=== PATIENT | female | born 1940 | race African-American/Black ===

== ENCOUNTER 2020-01-03 18:55 | Inpatient (IN) | payer OTHER ==
[~2020-01-03] VITALS: Ht 165.1 cm; Wt 75.8 kg
[2020-01-03 18:56] VITALS: BP 120/64
[2020-01-03 20:53] LABS: HEMATOCRIT 41.8 % (37.0-47.0); HEMOGLOBIN 13.7 gm/dL (12.0-15.0); MCH 27.3 pg (26.0-34.0); MCHC 32.9 g/dL (28.0-37.0); MCV 83.1 fL (80.0-100.0); RBC 5.02 mil/uL (4.20-5.00); RDW 16.5 % (10.5-14.5); WBC 3.3 thou/uL (4.0-11.0)
[2020-01-03 21:04] LABS: ANION GAP 4 mmol/L (7-16); BUN 20 mg/dL (7-18); CALCIUM 7.8 mg/dL (8.5-10.1); CHLORIDE 102 mmol/L (98-107); CO2 29 mmol/L (21-32); CREATININE 1.5 mg/dL (0.6-1.0); GLUCOSE 129 mg/dL (74-106); POTASSIUM 3.7 mmol/L (3.5-5.1); SODIUM 135 mmol/L (136-145)
[2020-01-03 21:14] LABS: ALBUMIN 3.4 g/dL (3.4-5.0); SGOT 22 U/L (15-37); SGPT 18 U/L (30-65); TOTAL BILIRUBIN 0.3 mg/dL (0.2-1.0); TOTAL PROTEIN 7.2 g/dL (6.4-8.2); TROPONIN-I <0.06 ng/mL (<0.06)
[2020-01-03 22:49] LABS: URINE BILIRUBIN NEGATIVE (Negative); URINE BLOOD 1+ (Negative); URINE CLARITY CLEAR; URINE COLOR YELLOW; URINE GLUCOSE-RANDOM* NEGATIVE (Negative); URINE KETONES NEGATIVE (Negative); URINE LEUKOCYTES-REFLEX NEGATIVE (Negative); URINE NITRITE-REFLEX NEGATIVE (Negative); URINE PROTEIN (DIPSTICK) NEGATIVE (Negative); URINE UROBILINOGEN 0.2 E.U./dl (0.2-1.0)
[2020-01-03 23:13] LABS: BACTERIA-REFLEX 1-9 Few /HPF (None Seen); CRYSTALS None Seen /LPF (None Seen); HYALINE CASTS 0-3 Few /LPF (None Seen); MUCUS 4-6 Moderate strn/LPF (None Seen); SQUAMOUS 4-10 Moderate /LPF (0-3); URINE RBC 3-10 Few /HPF (0-2); URINE WBC-REFLEX 0-5 Rare /HPF (0-5)
[2020-01-04] VITALS (8 sets, daily range): BP systolic 116–172; BP diastolic 58–88
[2020-01-04] MEDS ORDERED: ELIQUIS5 MG PO (01:11)
[2020-01-04] MEDS ORDERED: LOVASTATIN 20 M20 MG PO (01:11)
[2020-01-04] MEDS ORDERED: SYNTHROID88 MC1 PO (01:12)
[2020-01-04] MEDS ORDERED: VITAMIN D3 PO (01:12)
[2020-01-04 04:49] LABS: HEMATOCRIT 41.7 % (37.0-47.0); HEMOGLOBIN 13.5 gm/dL (12.0-15.0); MCH 27.1 pg (26.0-34.0); MCHC 32.3 g/dL (28.0-37.0); RBC 4.96 mil/uL (4.20-5.00); RDW 16.6 % (10.5-14.5); WBC 3.1 thou/uL (4.0-11.0)
[2020-01-04 04:51] LABS: CALCIUM 7.7 mg/dL (8.5-10.1); CREATININE 1.3 mg/dL (0.6-1.0); POTASSIUM 3.3 mmol/L (3.5-5.1)
[2020-01-04 07:18] LABS: CHOLESTEROL 115 mg/dL (<200); HDL CHOLESTEROL 29 mg/dL (>40); LDL CHOLESTEROL 67 mg/dL (<100); TRIGLYCERIDE 96 mg/dL (<150); VLDL 19 mg/dL (<40)
[2020-01-05] VITALS (9 sets, daily range): BP systolic 114–152; BP diastolic 60–87
[2020-01-06] VITALS (7 sets, daily range): BP systolic 116–171; BP diastolic 56–75
[2020-01-06 06:37] LABS: ABSOLUTE NEUTROPHILS 2.9 thou/uL (1.4-8.2); BASOPHILS 0.9 % (0.0-2.0); EOSINOPHILS 0.2 % (0.0-3.0); HEMATOCRIT 38.6 % (37.0-47.0); HEMOGLOBIN 12.7 gm/dL (12.0-15.0); LYMPHOCYTES 17.1 % (24.0-44.0); MCH 27.3 pg (26.0-34.0); MCHC 32.9 g/dL (28.0-37.0); MCV 82.9 fL (80.0-100.0); MONOCYTES 11.2 % (1.0-8.0); PLATELET COUNT 175 thou/uL (150-400); POLYS 70.6 % (36.0-66.0); RBC 4.66 mil/uL (4.20-5.00); RDW 16.3 % (10.5-14.5); WBC 4.1 thou/uL (4.0-11.0)
[2020-01-07 04:15] VITALS: BP 136/53
[2020-01-07 07:30] VITALS: BP 126/68
[2020-01-07 08:02] LABS: HEMATOCRIT 36.5 % (37.0-47.0); HEMOGLOBIN 12.2 gm/dL (12.0-15.0); MCH 27.2 pg (26.0-34.0); MCHC 33.5 g/dL (28.0-37.0); MCV 81.3 fL (80.0-100.0); PLATELET COUNT 170 thou/uL (150-400); RBC 4.48 mil/uL (4.20-5.00); RDW 16.4 % (10.5-14.5); WBC 3.5 thou/uL (4.0-11.0)
[2020-01-07 08:23] LABS: ALBUMIN 2.9 g/dL (3.4-5.0); CALCIUM 7.5 mg/dL (8.5-10.1); CREATININE 0.9 mg/dL (0.6-1.0); MAGNESIUM 1.6 mg/dL (1.8-2.4); TOTAL BILIRUBIN 0.3 mg/dL (0.2-1.0); TOTAL PROTEIN 6.4 g/dL (6.4-8.2)
[2020-01-07 08:55] LABS: ABSOLUTE NEUTROPHILS 2.2 thou/uL (1.4-8.2); PLATELET ESTIMATE NORMAL
[2020-01-07 11:14] VITALS: BP 143/79
[2020-01-07 16:06] VITALS: BP 150/73
[2020-01-07 20:28] VITALS: BP 136/71
[2020-01-08 02:07] LABS: GLYCOHEMOGLOBIN (HGB A1C) 7.2 % (4.8-5.6)
[2020-01-08 04:21] LABS: CALCIUM 7.7 mg/dL (8.5-10.1); CREATININE 0.9 mg/dL (0.6-1.0); MAGNESIUM 1.6 mg/dL (1.8-2.4)
[2020-01-08 04:24] VITALS: BP 115/62
[2020-01-08 04:41] LABS: POTASSIUM 4.1 mmol/L (3.5-5.1)
--- NOTE | 2020-01-08 07:23 | EKG ---
[facility] [address] [place] [address] ELECTROCARDIOGRAM REPORT Name: GUS ELIZABETH Room #: 354- ADM IN M.R.#: [id number] Admission: 01/04/20 Attend Phys: Pankaj Villatoro MD Discharge: Date of : 38 Report #: [id number] THIS REPORT FOR: cc: Matthew Villagran MD, Shyam MD Lundgren,Jonny Hughes MD [facility] THIS REPORT FOR: //name// [facility] Test Date: 2020-01-04 Test Time: 09:06:30 Pat Name: GUS ELIZABETH Department: Room: 354 P Gender: F Contracts Analyst: JUANPABLO : 1940 Requested By: Pankaj Villatoro Order Number: [id number] MD: Jonny Maldonado Measurements Intervals Nelson Rate: 57 P: 62 AK: 155 QRS: -31 QRSD: 92 T: -5 QT: 424 QTc: 413 Interpretive Statements Sinus rhythm Leftward axis No previous ECG available for comparison Electronically Signed On 01-08-2020 7:23:36 CDT by Jonny Maldonado [email or web address] <ELECTRONICALLY SIGNED> By: Jonny Maldonado MD, FACC 01/08/20 0723 5 5 Jonny Maldonado MD, [facility] /EPI
[2020-01-08 08:14] VITALS: BP 149/57
[2020-01-08 15:32] VITALS: BP 145/68
[2020-01-08 19:22] VITALS: BP 144/75
[2020-01-08 19:50] VITALS: BP 145/73
[2020-01-08 23:04] VITALS: BP 122/51
[2020-01-09 03:50] VITALS: BP 156/73
[2020-01-09 09:00] VITALS: BP 168/64
[2020-01-09 16:00] VITALS: BP 178/77
[2020-01-09 19:21] VITALS: BP 121/50
[2020-01-10 04:10] VITALS: BP 134/71
[2020-01-10 07:52] VITALS: BP 153/66
[2020-01-10 16:49] VITALS: BP 167/96
[2020-01-10 20:02] VITALS: BP 115/59
[2020-01-11 04:55] VITALS: BP 141/73
[2020-01-11 08:10] VITALS: BP 146/73
[2020-01-11] MEDS ORDERED: LEVAQUIN 500 M500 M2 PO (12:53)
[2020-01-11 15:32] VITALS: BP 139/75
== END 2020-01-11 16:52 | DRG 177 ==
LOC: ER 18:55 → 3W 01-04 00:51 → EROBS 01-04 00:51 → 3W 01-04 02:12
PROVIDERS: Nurse Practitioner Family; Student in an Organized Health Care Education/Training Program; ADMIT Internal Medicine; ATTEND Internal Medicine
DX: U07.1 COVID-19 (principal); J12.89 Other viral pneumonia; E03.9 Hypothyroidism, unspecified; E78.5 Hyperlipidemia, unspecified; E11.9 Type 2 diabetes mellitus without complications; F03.90 Unspecified dementia, unspecified severity, without behavioral disturbance, psychotic disturbance, mood disturbance, and anxiety; I95.1 Orthostatic hypotension; I10 Essential (primary) hypertension; Z98.49 Cataract extraction status, unspecified eye; Z86.711 Personal history of pulmonary embolism; Z79.01 Long term (current) use of anticoagulants; Z79.899 Other long term (current) drug therapy
CPT/HCPCS: 10879

== ENCOUNTER 2020-01-31 18:46 | Inpatient (IN) | payer OTHER ==
[~2020-01-31] VITALS: Ht 154.9 cm; Wt 70.8 kg
--- NOTE | ~2020-01-31 | O ---
[facility] [place] [address] [place] [address] OPERATIVE REPORT Name: GUS ELIZABETH Room #: 362-P ADM IN M.R.#: [id number] Admission: 01/31/20 Attend Phys: Marilynn Krueger MD Discharge: Date of : 38 Report #: [id number] THIS REPORT FOR: cc: Matthew Villagran MD, Shyam MD Patterson,Leonardo Lawrence MD ~ CC: Matthew Krueger DATE OF SERVICE: 02/21/2020 PREOPERATIVE DIAGNOSIS: Protein-calorie malnutrition. POSTOPERATIVE DIAGNOSIS: Protein-calorie malnutrition. OPERATION: Laparoscopic gastrostomy tube, 16-Cambodian. SURGEON: Leonardo Ramesh MD ANESTHESIA: General. ESTIMATED BLOOD LOSS: Minimal. SPECIMEN: None. DESCRIPTION OF PROCEDURE: After informed consent was obtained, the patient was brought to the operating room and placed supine. SCDs were placed and working, preoperative antibiotics were administered, general anesthesia was induced. The abdomen was prepped and draped in the usual sterile fashion. A 5 mm incision was made in the left upper quadrant. A 5 mm trocar was placed under direct vision. Pneumoperitoneum was established. T-bars were placed in the distal stomach. There were two of these T-bars placed using the laparoscopic gastrostomy introducer kit. The stomach was then brought up to the abdominal wall. The stomach was then cannulated between the T-bars with a Seldinger needle. Wire was placed. Dilator with a 22-Cambodian sheath was placed. A 16-Cambodian gastrostomy tube was then placed into the sheath and the sheath was peeled away. The balloon on the gastrostomy tube was inflated. The T-bars were fastened down. I insufflated the stomach to make sure that the tube was intraluminal. It was indeed in the lumen. The ports were removed under direct vision. The skin was closed with 4-0 Monocryl. Incisions were sealed with Dermabond. COMPLICATIONS: None. [facility] [address] [place] [address] OPERATIVE REPORT Name: GUS ELIZABETH Room #: 362-P [facility] IN ..#: [id number] Admission: 01/31/20 Attend Phys: Marilynn Krueger MD Discharge: Date of : 38 Report #: [id number] DISPOSITION: The patient was taken to recovery in satisfactory condition. By: 36 53 Leonardo Ramesh MD /nt
[~2020-01-31 18:46] MED LIST: ELIQUIS5 MG PO; LEVAQUIN 500 M500 M2 PO; LOVASTATIN 20 M20 MG PO; SYNTHROID88 MC1 PO; VITAMIN D3 PO
[2020-01-31 18:49] VITALS: BP 100/58
--- NOTE | 2020-01-31 19:10 | NUR ---
PER AM DIGESTER COOK RN FROM [facility]. REPORTED: PT FELL, LOW BP, WEAKNESS AND + KALAID VASU MARTE RN: [phone]
[2020-01-31 19:15] LABS: HEMATOCRIT 41.6 % (37.0-47.0); HEMOGLOBIN 13.7 gm/dL (12.0-15.0); MCH 26.8 pg (26.0-34.0); MCHC 32.9 g/dL (28.0-37.0); MCV 81.4 fL (80.0-100.0); PLATELET COUNT 326 thou/uL (150-400); RBC 5.11 mil/uL (4.20-5.00); RDW 16.1 % (10.5-14.5); WBC 17.3 thou/uL (4.0-11.0)
[2020-01-31 19:34] LABS: ALBUMIN 2.6 g/dL (3.4-5.0); ANION GAP 19 mmol/L (7-16); BUN 36 mg/dL (7-18); CALCIUM 8.3 mg/dL (8.5-10.1); CHLORIDE 102 mmol/L (98-107); CO2 20 mmol/L (21-32); DIRECT BILIRUBIN 0.2 mg/dL (<0.1-0.2); GLUCOSE 171 mg/dL (74-106); SGOT 15 U/L (15-37); SGPT 13 U/L (30-65); SODIUM 141 mmol/L (136-145); TOTAL BILIRUBIN 0.6 mg/dL (0.2-1.0); TOTAL PROTEIN 6.7 g/dL (6.4-8.2); TROPONIN-I <0.06 ng/mL (<0.06)
[2020-01-31 19:36] LABS: POTASSIUM 2.6 mmol/L (3.5-5.1)
[2020-01-31 19:51] LABS: ABSOLUTE NEUTROPHILS 16.1 thou/uL (1.4-8.2); ANISOCYTOSIS 1+; METAMYELOCYTES 1 %
[2020-01-31 20:09] LABS: ICTOTEST (BILI CONFIRMATORY) Negative (Negative); URINE BILIRUBIN NEGATIVE (Negative); URINE BLOOD NEGATIVE (Negative); URINE CLARITY CLEAR; URINE COLOR YELLOW; URINE GLUCOSE-RANDOM* NEGATIVE (Negative); URINE KETONES 2+ (Negative); URINE LEUKOCYTES-REFLEX NEGATIVE (Negative); URINE NITRITE-REFLEX NEGATIVE (Negative); URINE PROTEIN (DIPSTICK) 1+ (Negative); URINE UROBILINOGEN 0.2 E.U./dl (0.2-1.0)
[2020-01-31 20:32] LABS: BACTERIA-REFLEX 1-9 Few /HPF (None Seen); CASTS None Seen /LPF (None Seen); CRYSTALS None Seen /LPF (None Seen); SQUAMOUS 0-3 Few /LPF (0-3); URINE RBC None Seen /HPF (0-2); URINE WBC-REFLEX None Seen /HPF (0-5)
[2020-01-31 22:52] VITALS: BP 108/59
[2020-01-31 23:14] VITALS: BP 108/61
[2020-02-01 00:07] VITALS: BP 104/46
[2020-02-01 04:10] VITALS: BP 127/61
[2020-02-01 06:21] LABS: HEMATOCRIT 40.6 % (37.0-47.0); HEMOGLOBIN 13.3 gm/dL (12.0-15.0); MCH 26.6 pg (26.0-34.0); MCHC 32.6 g/dL (28.0-37.0); MCV 81.5 fL (80.0-100.0); RBC 4.99 mil/uL (4.20-5.00); RDW 16.3 % (10.5-14.5); WBC 18.3 thou/uL (4.0-11.0)
[2020-02-01 06:49] LABS: CALCIUM 7.8 mg/dL (8.5-10.1); CREATININE 1.7 mg/dL (0.6-1.0); POTASSIUM 3.2 mmol/L (3.5-5.1)
--- NOTE | 2020-02-01 07:47 | NUR ---
PT TO UNIT AROUND 0030. PT IS ORIETNED TO SELF BUT CONFUSED. TALKS NONSENSE. PT IS CONTINENT, X1 ASSIST TO BSC. 3 SMALL LOOSE STOOLS OVERNIGHT. PT HR 90-110S TONIGHT. NO APPARENT PAIN. POTASSIUM HAD TO BE RAN SLOW, THEREFORE IT IS STILL RUNNING. PER FACILITY, PT TAKES MEDS CRUSHED WITH APPLESAUCE, PT VERY APPREHENSIVE ABOUT EATING APPLESAUCE WITH MORNING MEDS. FLUIDS INFUSING PER ORDER. ADMISISON ASSESSMENT COMPLETED, TRIED TO PHONE FAMILY FOR HELP BUT NO ANSWER- INFO PASSED TO AM RN. PT SLEPT W/O COMPLAINTS.
[2020-02-01 08:13] VITALS: BP 113/50
--- NOTE | 2020-02-01 09:21 | NUR ---
ASSUMED CARE OF PT AT SHIFT CHANGE, ANSWERS TO HER BDATE ONLY, SHAKES HER HEAD NO TO CARES AND MEDS THIS A.M. GOT ELEQUIS DOWN, SBA TO BSC, ISNT SPEAKING/GRUNTS, MAY BE NORM? WILL SPEAK W/FAMILY LATER WHEN ABLE. NIGHT NURSE REPORTS ADMISSION HISTORY NOT DONE D/T PTS COGNITION/LACK OF SPEECH. 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 WILL CONTINUE TO MONITOR. ENCOURAGED HER TO USE CALL LIGHT FOR ANY NEEDS
[2020-02-01 11:49] VITALS: BP 115/50
--- NOTE | 2020-02-01 13:29 | NUR ---
ADMISSION HISTORY: PT ADMIITED PRIOR SHIFT; REPORTS OF UNABLE TO ANSWER QUESTIONS, COULD NOT REACH FAMILY TO FINISH UP HER ADMISSION HISTORY
--- NOTE | 2020-02-01 15:25 | NUR ---
INITIAL ASSESSMENT: HARLEEN reviewed chart and spoke with nursing. Pt was admitted from [facility] due to syncopal episode/fall at the facility. Pt placed in Enhanced Isolation to r/o COVID-19. Pt's test is positive. Pt was recenlty at [facility] and was positive at that time. HARLEEN spoke with pt's great niece, Rosanna via phone to provide update. Introduced role of SW. Pt's great niece states that prior to admission, pt was able to do her ADLs. Pt was able to feed herself and eat. Pt was walking at the facility. Sometimes using a walker. Pt has lived in the memory care unit at [facility] since September of this year. Pt's dtr, Jeni, lives out of state, but is involved in pt's care. Confirmed plan is for pt to return to [facility] when medically stable. SW faxed clinical info, vital signs, COVID test results to [facility] for review. HARLEEN provided update to [facility] post-acute liaison. HARLEEN is following to assist as needed with discharge planning.
[2020-02-01 15:46] VITALS: BP 143/78
[2020-02-01 20:20] VITALS: BP 114/61
--- NOTE | 2020-02-02 03:49 | NUR ---
ASSUMED PT CARE AT 1900. PT IS ORIENTED TO SELF ONLY. IMPULSIVE WHEN SHE WANTS TO USE THE COMMODE. PT IS VERY DIFFICULT TO GET TO TAKE MEDS. SHE WAS WILLING TO TRY WITH ICE CREAM AND ENDED UP SPITTING THEM OUT. FLUIDS AND ANTIBIOTICS INFUSING PER ORDER. PT SEEMED UNCOMFORTABLE AND HAD A SMALL TEMP, TYLENOL WAS GIVEN AND PT FELL ASLEEP. BS WNL. RUNNING SINUS ON MONITOR. WILL CONTINUE TO MONITOR.
[2020-02-02 04:13] VITALS: BP 102/53
[2020-02-02 06:23] LABS: HEMATOCRIT 38.3 % (37.0-47.0); HEMOGLOBIN 12.5 gm/dL (12.0-15.0); MCH 26.8 pg (26.0-34.0); MCHC 32.6 g/dL (28.0-37.0); MCV 82.2 fL (80.0-100.0); RBC 4.66 mil/uL (4.20-5.00); RDW 16.2 % (10.5-14.5); WBC 20.2 thou/uL (4.0-11.0)
[2020-02-02 06:51] LABS: CALCIUM 7.3 mg/dL (8.5-10.1); CREATININE 1.8 mg/dL (0.6-1.0); POTASSIUM 3.3 mmol/L (3.5-5.1)
[2020-02-02 08:30] VITALS: BP 97/54
--- NOTE | 2020-02-02 09:01 | EKG ---
[facility] [address] [place] [address] ELECTROCARDIOGRAM REPORT Name: GUS ELIZABETH Room #: 362-P ADM IN M.R.#: [id number] Admission: 01/31/20 Attend Phys: Marilynn Krueger MD Discharge: Date of : 38 Report #: [id number] THIS REPORT FOR: cc: Matthew Villagran MD, Shyam MD Lundgren,Jonny Hughes MD [facility] ~ THIS REPORT FOR: //name// [facility] ED Test Date: 2020-01-31 Test Time: 19:08:50 Pat Name: GUS ELIZABETH Department: Room: 362 Gender: F [employer] Farmworker: JEAN MARIE : 1940 Requested By: Julius Davies Order Number: [id number] MD: Jonny Maldonado Measurements Intervals [place] Rate: 94 P: 0 SD: 158 QRS: -27 QRSD: 92 T: -27 QT: 361 QTc: 452 Interpretive Statements Incomplete tracing, recommend all leads Sinus tachycardia Multiple atrial premature complexes Nonspecific ST and T wave abnormality Compared to ECG 01/04/2020 09:06:30 Atrial premature complex(es) now present Nonspecific change in the ST and T wave segments Electronically Signed On 02-02-2020 9:01:49 CDT by Jonny Maldonado [email or web address] <ELECTRONICALLY SIGNED> By: Jonny Maldonado MD, [facility] 02/02/20900 07 07 Jonny Maldonado MD, [facility] /EPI
[2020-02-02 11:37] VITALS: BP 118/62
--- NOTE | 2020-02-02 15:00 | NUR ---
HARLEEN reviewed chart and spoke with nursing. Pt remains in Enhanced Isolation due to COVID-19. Pt had fever yesterday and is on IV abx. Awaiting culture results Not requiring any O2. HARLEEN provided update to [facility] post-acute liaison. No weekend discharge anticipated. HARLEEN spoke with pt's great niece, Rosanna, to provide update. SW to fax clinical updates to [facility] on Wednesday for review. Pt will need an updated COVID test within 48 hours of discharge per facility's request. HARLEEN is following to assist as needed with discharge planning.
[2020-02-02 15:32] LABS: URINE BILIRUBIN 1+ (Negative); URINE BLOOD NEGATIVE (Negative); URINE CLARITY SL CLOUDY; URINE COLOR YELLOW; URINE GLUCOSE-RANDOM* NEGATIVE (Negative); URINE KETONES TRACE (Negative); URINE LEUKOCYTES-REFLEX NEGATIVE (Negative); URINE NITRITE-REFLEX NEGATIVE (Negative); URINE PROTEIN (DIPSTICK) 2+ (Negative); URINE SPECIFIC GRAVITY >= 1.030 (1.005-1.035); URINE UROBILINOGEN 0.2 E.U./dl (0.2-1.0)
[2020-02-02 15:37] LABS: ICTOTEST (BILI CONFIRMATORY) Negative (Negative)
[2020-02-02 15:43] LABS: AMORPHOUS URATES Moderate /LPF (None Seen); SQUAMOUS 0-3 Few /LPF (0-3)
[2020-02-02 15:44] LABS: BACTERIA-REFLEX 1-9 Few /HPF (None Seen); CASTS None Seen /LPF (None Seen); URINE RBC None Seen /HPF (0-2); URINE WBC-REFLEX None Seen /HPF (0-5)
--- NOTE | 2020-02-02 18:14 | NUR ---
ASSUMMED PT CARE AT APPROXIMATELY 0700. PT AWAKE AND ORIENTED TO SELF. FREQUENT REORIENTATION PROVIDED. ASSESSEMENT CHARTED. FALL PRECAUTIONS IN PLACE. PT DENIES HAVING CHEST PAIN. PT DENIES HAVING SOB. PT DENIES HAVING ACUTE PAIN. INFORMED DR. ENG OF PT'S LOW URINE OUTPUT. PT STATED UNDERSTANDING AND NEW ORDERS ENTERED. INFORMED DR. ENG OF PT'S KUB RESULTS. DR. ENG STATED UNDERSTANDING AND NEW ORDERS ENTERED. PT COMFORTABLE. VITAL SIGNS STABLE. PT DENIES HAVING FURTHER CONCERNS.
[2020-02-02 20:00] VITALS: BP 115/78
[2020-02-03 02:13] LABS: HEMATOCRIT 35.1 % (37.0-47.0); HEMOGLOBIN 11.3 gm/dL (12.0-15.0); MCH 26.4 pg (26.0-34.0); MCHC 32.3 g/dL (28.0-37.0); MCV 81.9 fL (80.0-100.0); PLATELET COUNT 239 thou/uL (150-400); RBC 4.29 mil/uL (4.20-5.00); RDW 16.3 % (10.5-14.5); WBC 16.3 thou/uL (4.0-11.0)
[2020-02-03 02:27] LABS: CALCIUM 6.8 mg/dL (8.5-10.1); CREATININE 1.2 mg/dL (0.6-1.0); MAGNESIUM 1.5 mg/dL (1.8-2.4); PHOSPHORUS 1.3 mg/dL (2.5-4.9)
[2020-02-03 02:48] LABS: ABSOLUTE NEUTROPHILS 14.8 thou/uL (1.4-8.2)
[2020-02-03 02:49] LABS: ANISOCYTOSIS 1+
[2020-02-03 04:41] VITALS: BP 90/45
[2020-02-03 08:47] VITALS: BP 102/53
[2020-02-03 11:12] VITALS: BP 106/52
--- NOTE | 2020-02-03 14:09 | NUR ---
REPORT GIVEN TO ALEX AVILES.
[2020-02-03 15:49] VITALS: BP 126/57
[2020-02-03 18:11] LABS: HEMATOCRIT 35.5 % (37.0-47.0); HEMOGLOBIN 11.6 gm/dL (12.0-15.0)
--- NOTE | 2020-02-03 18:52 | NUR ---
ASSUMED CARE OF PATIENT AT 1400. PATIENT IS ON ISOLATION FOR COVID. PATIENT HAS DEMENTIA AND IS VERY IMPULSIVE AND TRIES TO GET OUT OF BED. BED ALARM SET. PATIENT NPO FOR ILEUS. CT ABD/PELVIS PERFORMED, PENDING RESULTS. ALL MEDS BEING HELD WITH THE EXCEPTION OF ELIQUIS AND THYROID MEDICATION. PATIENT DENIES ANY COMPLAINTS OR SHOWING ANY SYMPTOMS OF DISTRESS. PATIENT TO CONTINUE WITH POC.
[2020-02-03 19:02] LABS: CALCIUM 7.1 mg/dL (8.5-10.1); CREATININE 1.2 mg/dL (0.6-1.0); MAGNESIUM 1.8 mg/dL (1.8-2.4)
[2020-02-03 21:35] VITALS: BP 122/58
--- NOTE | 2020-02-04 01:39 | NUR ---
PT TRANSFERRING TO BEDSIDE COMMODE WITH ASSIST X1 AND IS TOLERATING FAIR. DENIES PAIN. RESTING COMFORTABLY. NO NEEDS VOICED. CALL LIGHT WITHIN REACH. FREQUENT OBSERVATION.
[2020-02-04 05:59] VITALS: BP 119/57
[2020-02-04 06:31] LABS: HEMATOCRIT 34.7 % (37.0-47.0); HEMOGLOBIN 11.2 gm/dL (12.0-15.0); MCH 26.6 pg (26.0-34.0); MCHC 32.4 g/dL (28.0-37.0); MCV 82.2 fL (80.0-100.0); PLATELET COUNT 254 thou/uL (150-400); RBC 4.22 mil/uL (4.20-5.00); RDW 16.5 % (10.5-14.5); WBC 8.3 thou/uL (4.0-11.0)
[2020-02-04 06:53] LABS: ALBUMIN 1.8 g/dL (3.4-5.0); CALCIUM 7.1 mg/dL (8.5-10.1); CREATININE 1.1 mg/dL (0.6-1.0); MAGNESIUM 1.6 mg/dL (1.8-2.4); PHOSPHORUS 2.4 mg/dL (2.5-4.9); TOTAL BILIRUBIN 0.2 mg/dL (0.2-1.0); TOTAL PROTEIN 4.8 g/dL (6.4-8.2)
[2020-02-04 06:58] LABS: POTASSIUM 2.9 mmol/L (3.5-5.1)
[2020-02-04 07:53] VITALS: BP 120/61
[2020-02-04 10:54] VITALS: BP 135/80
[2020-02-04 12:17] LABS: ABSOLUTE NEUTROPHILS 6.2 thou/uL (1.4-8.2); ATYPICAL LYMPHS 1 %
[2020-02-04 12:18] LABS: ANISOCYTOSIS 1+; SCHISTOCYTES FEW; TARGET CELLS FEW
[2020-02-04 15:04] LABS: PHOSPHORUS 3.4 mg/dL (2.5-4.9)
--- NOTE | 2020-02-04 16:08 | NUR ---
PT HAS BEEN CONFUSED ALL MORNING, YET PLEASANT. IV ON R FOREARM/AC AREA WAS HARD TO TOUCH, WARM, INFILTRATION WAS SUSPECTED SO IV HAS BEEN REMOVED. ANOTHER IV WAS PLACED BY MEDICAL STAFF MEMBER AT THE LOWER R FOREARM, THAT WAS REMOVED BY THE PT WELL, AND L FA IV THAT WAS PLACED BY THE IV TEAM HAS BEEN REMOVED BY THE PT WELL. PT IS IMPULSIVE AND TRIES TO GET OUT OF BED, PT STATED HAVING PAIN AT THE LAST IV SITE, BLOOD RETURN WAS PRESENT. NO SPECIFIC CONCERNS FROM THE PATIENT. GI CONSULT STATED CLEAR LIQUID DIET WAS ALLOWED FOR THE PT. PT HAS BEEN SWITCHED TO PO POTASSIUM MEDICATION TO FINISH OUT THE ROUND OF POTASSIUM REVITALIZATION AFTER 2.9 CRITICAL RESULT THIS AM. RN HAS BEEN TRYING TO ADMINISTER THE MEDICATION BUT HAVE NOT BEEN SUCCESSFUL DUE TO REMOVAL OF ACCESS. WILL CONTINUE WITH THE PO DOSE
[2020-02-04 18:56] VITALS: BP 150/73
--- NOTE | 2020-02-05 00:58 | NUR ---
ASSESSED AT START OF SHIFT. PT A&0 TO SELF CONFUSED HX OF DEMENTIA AND IMPULSIVE WHEN SHE NEEDS TO USE THE BSC. FALL PREC IN PLACE AND UP WITH ASSISTX1. STOOL COLLECTED AND SENT TO LAB. IV INTACT AND ABX GIVEN. ISOLATION MAINTAINED. PT ON CLEAR LIQUID DIET. EVENING PILLS GIVEN AND PT JOI IT WELL. WILL CONT TO MONITOR.
[2020-02-05 04:07] VITALS: BP 126/66
[2020-02-05 06:31] LABS: HEMATOCRIT 32.6 % (37.0-47.0); MCH 27.1 pg (26.0-34.0); MCHC 33.7 g/dL (28.0-37.0); MCV 80.6 fL (80.0-100.0); PLATELET COUNT 244 thou/uL (150-400); RBC 4.04 mil/uL (4.20-5.00); RDW 16.2 % (10.5-14.5); WBC 5.9 thou/uL (4.0-11.0)
[2020-02-05 06:45] LABS: CALCIUM 6.8 mg/dL (8.5-10.1); MAGNESIUM 1.4 mg/dL (1.8-2.4)
[2020-02-05 08:05] VITALS: BP 129/87
[2020-02-05 11:24] VITALS: BP 124/54
[2020-02-05 11:51] LABS: ABSOLUTE NEUTROPHILS 3.9 thou/uL (1.4-8.2); ATYPICAL LYMPHS 3 %
[2020-02-05 11:53] LABS: ANISOCYTOSIS 1+; BURR CELLS 1+; POIKILOCYTOSIS SLIGHT
--- NOTE | 2020-02-05 14:00 | NUR ---
PT VERY IMPULSIVE...HIGH FALL RISK...FALL PREC IN PLACE...
--- NOTE | 2020-02-05 16:21 | NUR ---
SW reviewed chart and spoke with nursing and attending physician. Pt remains in Enhanced Isolation due to COVID-19. Pt is slowly progressing towards goals for discharge. Surgery consulted due to SBO/colitis. GI consulted. Pt is afebrile and not on O2. Pt is on IV abx. SW provided update to [place] post-acute liaison. Plan is for pt to return to [facility] when medically stable. Pt will need repeat COVID test within 48 hours of discharge. HARLEEN is following to assist as needed with discharge planning.
[2020-02-05 19:44] VITALS: BP 133/56
--- NOTE | 2020-02-05 20:43 | NUR ---
PT VERY IMPULSIVE..PULLS AT IV TUBING AND SNAPPED TUBING BUT IV SITE SAVED...
[2020-02-06 04:15] VITALS: BP 122/52
[2020-02-06 04:52] LABS: URINE BILIRUBIN NEGATIVE (Negative); URINE BLOOD TRACE (Negative); URINE CLARITY CLEAR; URINE COLOR YELLOW; URINE GLUCOSE-RANDOM* NEGATIVE (Negative); URINE KETONES NEGATIVE (Negative); URINE LEUKOCYTES-REFLEX NEGATIVE (Negative); URINE NITRITE-REFLEX NEGATIVE (Negative); URINE PROTEIN (DIPSTICK) TRACE (Negative); URINE SPECIFIC GRAVITY >= 1.030 (1.005-1.035); URINE UROBILINOGEN 0.2 E.U./dl (0.2-1.0)
--- NOTE | 2020-02-06 06:25 | NUR ---
Assumed pt care at 1900. A/OX1-2,pleasantly confused but able to make needs known;impulsive at times and attempts to get out of bed w/o calling. Denies pain on assessment. No SOA noted,VSS. Wu patent to DD draining tea colored urine;PO intake encouraged but pt's hesitant to. IVF infusing via LFA w/o problems IV wrapped in coban for safety. Resting quietly at this time,fall precautions in place.
[2020-02-06 06:28] LABS: CALCIUM 6.7 mg/dL (8.5-10.1); CREATININE 0.9 mg/dL (0.6-1.0); MAGNESIUM 1.4 mg/dL (1.8-2.4)
[2020-02-06 06:47] LABS: POTASSIUM 2.9 mmol/L (3.5-5.1)
[2020-02-06 07:43] VITALS: BP 149/63
[2020-02-06 11:32] VITALS: BP 153/75
--- NOTE | 2020-02-06 15:38 | NUR ---
HARLEEN reviewed chart and spoke with nursing and attending physician. Pt in Enhanced Isolation due to COVID-19. Pt on clear liquids and diet to be advanced. SW faxed clinical info to [facility] [place] for review. Provided update to [place] post-acute liaison. Discharge back to [facility] is anticipated in 1-2 days. Pt will need repeat COVID test within 48 hours of discharge. Attending physician aware. HARLEEN spoke with pt's great niece, Parris, via phone to provide update and notify of anticipated discharge timeframe. Parris is aware and in agreement with plan. HARLEEN is following to assist as needed with discharge planning.
[2020-02-06 16:33] VITALS: BP 130/66
--- NOTE | 2020-02-06 19:43 | NUR ---
PT HAS HAD ALMOST NO INTAKE OF FOOD OVER LAST MONTH PER DAUGHTER DAVID...SHE QUESTIONS IF HER MOTHER HAS LOST HE SENSE OF TASTE AND SMELL RE COVID AND POSSIBLY THAT HAS AFFECTED HER INTAKE...DAUGHTER WANTING TPN...DR RUDOLPH ORDERED CALORIE COUNT X 3 DAYS AND NUTRITION CONSULT WAS PLACED...
[2020-02-06 19:59] VITALS: BP 127/52
[2020-02-06 23:48] VITALS: BP 120/56
[2020-02-07 04:40] VITALS: BP 142/60
--- NOTE | 2020-02-07 05:16 | NUR ---
Assumed pt care at 1900. A/O to self only,pleasantly confused able to make needs known at times. Pt is impulsive at times and gets up w/o calling for help. Fall precautions in place. Pt has had liquid green poop x2 this shift. Denies pain on assessment. No N/V,SOA noted. Pt declines to drink anything when offered stating "I would care less for it". IVF infusing via LFA w/o any problems noted. Resting quietly at this time w/o any distress noted, will continue to monitor pt.
[2020-02-07 09:22] LABS: CALCIUM 6.5 mg/dL (8.5-10.1); CREATININE 0.9 mg/dL (0.6-1.0); MAGNESIUM 1.3 mg/dL (1.8-2.4); POTASSIUM 3.1 mmol/L (3.5-5.1)
--- NOTE | 2020-02-07 09:56 | NUR ---
If no improvement in po intake in next 24 hr, consider change IVF to clinimix PPN
[2020-02-07 11:15] VITALS: BP 133/64
[2020-02-07 15:34] VITALS: BP 119/55
--- NOTE | 2020-02-07 15:59 | NUR ---
HARLEEN reviewed chart and spoke with nursing and attending physician. Pt is in Enhanced Isolation due to COVID-19. Pt is afebrile and not requiring O2. Pt has orders for a 3-day calorie count, which will start today. Pt's family states that pt has not been eating over the past month. Attending physician discussed with family about possible peg tube placement if pt's appetite does not improve. Pt to be started on megace. HARLEEN provided update to [facility] post-acute liaison. HARLEEN requested DPOA ppwk from [facility]. DPOA ppwk obtained which lists her great niece, Parris, as her DPOA. DPOA ppwk faxed to unit to be placed on pt's chart. HARLEEN updated pt's nurse. Plan is for pt to discharge back to [facility] when medically stable. Pt will need repeat COVID test within 48 hours of discharge. HARLEEN is following to assist as needed with discharge planning.
[2020-02-07 19:32] VITALS: BP 133/57
--- NOTE | 2020-02-08 03:29 | NUR ---
Patient making slow progress towards outcome goals. Appetite remains poor. Refused dinner. PPN infusing. Patient remains confused due to dementia, fall precautions in place.Has made several attempts to get out of bed, needs to be reoriented frequently. Wu catheter in place fro retention. Will reswab this morning for COVID. Vital signs and rhythm stable.
[2020-02-08 05:35] VITALS: BP 138/63
[2020-02-08 06:56] LABS: CALCIUM 6.5 mg/dL (8.5-10.1); CREATININE 0.9 mg/dL (0.6-1.0); MAGNESIUM 1.5 mg/dL (1.8-2.4); POTASSIUM 3.2 mmol/L (3.5-5.1)
[2020-02-08 07:27] VITALS: BP 127/61
[2020-02-08 11:25] VITALS: BP 134/60
--- NOTE | 2020-02-08 13:24 | NUR ---
SW reviewed chart and spoke with nursing and attending physician. Pt is in Enhanced Isolation due to COVID-19. Pt is afebrile and not on O2. Pt is on IV abx. GI consulted to discuss possible peg tube placement with pt's family. SW provided update to [facility] post-acute liaison. Repeat COVID test is pending. Awaiting input from family regarding peg tube placement v. hospice. HARLEEN is following to assist as needed with discharge planning.
[2020-02-08 15:58] VITALS: BP 139/58
--- NOTE | 2020-02-08 18:18 | NUR ---
ASSUMED CARE OF PT AT 0700. PT CONFUSED, IMPULSIVE, BUT REDIRECTABLE. STILL RELUCTANT TO EAT. ABLE TO EAT FEW BITES THEN REFUSES. RESWAB POSITIVE. WCM.
[2020-02-08 20:50] VITALS: BP 127/56
--- NOTE | 2020-02-09 03:38 | NUR ---
Patient is making very slow progress towards outcome goals. No appetite. Poor intake.Refused dinner. Took only sips od glucerna supplement. PPN infusing. Vital signs and rhythm stable. High fall risks, fall precautions in place.
[2020-02-09 04:58] VITALS: BP 120/51
[2020-02-09 07:10] LABS: CALCIUM 7.1 mg/dL (8.5-10.1); MAGNESIUM 1.7 mg/dL (1.8-2.4); POTASSIUM 3.1 mmol/L (3.5-5.1)
[2020-02-09 08:31] VITALS: BP 131/63
--- NOTE | 2020-02-09 11:18 | NUR ---
Followup: pt still not eating, still testing positive COVID. Note discussion for possible PEG placement, GI following. For now, remains on some supplemental PPN. Will continue to follow along.
--- NOTE | 2020-02-09 12:56 | NUR ---
HARLEEN reviewed chart and spoke with nursing and attending physician. Pt is in Enhanced Isolation due to COVID-19. Pt is afebrile and not requiring O2. Pt is on IV abx. Pt's repeat COVID test is positive. No weekend discharge planned. Awaiting input from family regarding peg tube placement. HARLEEN updated [facility] post-acute liaison. Faxed clinical updates and COVID test results to facility for review. Pt will need another repeat COVID test within 48 hours of discharge. HARLEEN is following to assist as needed with discharge planning.
[2020-02-09 15:56] VITALS: BP 142/64
--- NOTE | 2020-02-09 19:31 | NUR ---
ASSUMED PATIENT CARE AT 0700. ALERT. REFUSED TO EAT. NOT TOWARDS POC GOALS.
[2020-02-09 20:34] VITALS: BP 130/57
--- NOTE | 2020-02-09 20:39 | NUR ---
1900 assumed care of pt after report. 2030 baseline assessment completed, pt resting in bed no complaints of pain or discomfort, refuses scd's, fall precautions in place, will continue to monitor. pt oriented to self only
[2020-02-10 04:40] VITALS: BP 134/56
[2020-02-10 06:33] LABS: HEMATOCRIT 33.5 % (37.0-47.0); HEMOGLOBIN 11.1 gm/dL (12.0-15.0); MCH 26.7 pg (26.0-34.0); MCHC 33.3 g/dL (28.0-37.0); MCV 80.3 fL (80.0-100.0); RBC 4.17 mil/uL (4.20-5.00); RDW 16.2 % (10.5-14.5); WBC 5.6 thou/uL (4.0-11.0)
[2020-02-10 06:51] LABS: CALCIUM 7.4 mg/dL (8.5-10.1); CREATININE 0.9 mg/dL (0.6-1.0); MAGNESIUM 1.5 mg/dL (1.8-2.4); POTASSIUM 3.3 mmol/L (3.5-5.1)
[2020-02-10 08:26] VITALS: BP 129/60
[2020-02-10 12:03] VITALS: BP 125/59
[2020-02-10 16:06] VITALS: BP 127/56
--- NOTE | 2020-02-10 20:35 | NUR ---
1900 ASSUMED CARE OF PT AFTER REPORT. 2035 BASELINE ASSESSMENT COMPLETED, PT PLEASANTLY CONFUSED, ORIENTED TO PERSON ONLY,ADEQUATE URINE OUTPUT ALTHOUGH REFUSING TO EAT OR DRINK ANYTHING, STATES NOT HUNGRY. FALL PRECAUTIONS IN PLACE, WILL CONTINUE TO MONITOR
[2020-02-10 21:41] VITALS: BP 118/85
[2020-02-11 05:03] VITALS: BP 139/58
[2020-02-11 07:47] VITALS: BP 143/57
[2020-02-11 08:40] LABS: CALCIUM 7.7 mg/dL (8.5-10.1); CREATININE 0.9 mg/dL (0.6-1.0); MAGNESIUM 1.5 mg/dL (1.8-2.4); POTASSIUM 3.8 mmol/L (3.5-5.1)
[2020-02-11 11:39] VITALS: BP 144/82
[2020-02-11 17:00] VITALS: BP 135/55
--- NOTE | 2020-02-11 19:49 | NUR ---
ASSUMED PATIENT CARE THIS AM AT APPROXIMATELY 0700. ASSESSMENTS AND MEDS CHARTED. PATIENT AWAKE AND ALERT DISORIENTED TO PLACE TIME AND SITUATION, PLESANTLY CONFUSED. VSS. NO RESPIRATORY DISTRESS THIS SHIFT. O2 STABLE ON RA PATIENT APPETITE VERY POOR THIS SHIFT. REFUSING MEALS. NO BM NOTED THIS SHIFT. DR. RUDOLPH SPOKE [facility] FAMILY REGARDING PLAN OF CARE TODAY.
[2020-02-12 05:04] VITALS: BP 136/63
--- NOTE | 2020-02-12 05:07 | NUR ---
PATIENT ALERT AD ORIENTED X2. DUONG TO D/D WITH YELLOW URINE. PPN INFUSING PER ORDER W/O COMPLICATION. BS MONITORED PER ORDER. COOPERATIVE WITH CARE. PATIENT DOES NOT USE CALL LIGHT, YELLS "HELP". UP TO BSC WITH ONE ASSIST. WILL MONITOR.
[2020-02-12 07:43] VITALS: BP 119/57
--- NOTE | 2020-02-12 10:12 | NUR ---
plan to insert dubhoff tube today. called melt house drag operator to ask regarding nurse who can place tube, deep states to call GI for tube placement because ICU nurse unavaliable. called gi ext [phone] and left message at [phone]. awaiting call back
[2020-02-12 11:08] VITALS: BP 125/68
--- NOTE | 2020-02-12 12:25 | NUR ---
PLAN FOR DUBHOFF TUBE ON HOLD, DR. RUDOLPH TO SPEAK WITH FAMILY REGARDING PLAN BECAUSE SNF FACILITY WILL NOT ACCEPT PATIENTS WITH DUBHOFF TUBES
--- NOTE | 2020-02-12 14:19 | NUR ---
HARLEEN reviewed chart and spoke with nursing and attending physician. Pt is in Enhanced Isolation due to COVID-19. Pt is afebrile and not requiring O2. Attending physician discussed dobhoff placement with pt's great niece/DPOA, Parris. Explained to physician that pt cannot discharge back to her nursing facility with a dobhoff in place. Pt would be able to return with a peg tube. Attending physician to discuss further with pt's DPOA. HARLEEN faxed clinical info to [facility] for review. Updated [facility] post-acute liaison. HARLEEN is following to assist as needed with discharge planning.
[2020-02-12 15:12] VITALS: BP 134/63
--- NOTE | 2020-02-12 16:33 | NUR ---
FAXED CLINICAL UPDATE TO [facility] SPOKE WITH DIEUDONNE IN ADM SHE RECEIVED UPDATE. DP TO FOLLOW.
--- NOTE | 2020-02-12 18:34 | NUR ---
ASSUMED PATIENT CARE THIS SHIFT. MEDS AND ASSESSMENTS CHARTED. PATIENT STILL HAVING POOR PO INTAKE THIS SHIFT. PLAN FOR PEG PLACEMENT WITH SURGERY IF OK WITH FAMILY. DR. RUDOLPH TO GET OK FROM FAMILY TODAY. DUBHOFF TUBE NO LONGER AN OPTION BECAUSE SNF WILL NOT ACCEPT DUBHOFF TUBE. GI SPOKE WITH NURSE TODAY AND STATES THAT IT WILL HAVE TO BE SURGERY THAT PLACES PEG BECAUSE IT WILL HAVE TO BE SUTURED IN PLACE SINCE PATIENT HAS TENDENCY TO PULL ON LINES. SPOKE WITH DR. KELLEY UPON ROUNDING TO MAKE AWARE OF THIS AND STATES WILL SPEAK WITH GI. NO NEW ORDERS OBTAINED FOR SURGERY TODAY. PATIENT STILL ON PPN. BLOOD GLUCOSE STABLE. DENIES ANY ABDOMINAL PAIN THIS SHIFT. HAVING LOOSE BMS. DUONG IN PLACE WITH ADEQUATE OUTPUT
--- NOTE | 2020-02-13 00:45 | NUR ---
PT AOX1 TO SELF, DROWSY, FORGETFUL, CONFUSED WITH PLEASANT MOOD. PT DENIES PAIN. PT HAS PRN PO APAP Q4HR AVAILABLE. PT CONTINUES TO HAVE POOR INTAKE ONLY DRINKING SIPS OF FLUIDS WITH MEDICATIONS. FREQUENT REPOSITIOING ENCOURAGED. PT NOTED TO SHIFT INDEPENDENTLY WHILE IN BED, REFUSING TURNS DUE TO REPORTS OF COMFORT. PT CONTINUES TO REST IN BED WITHOUT INTERRUPTION OR OBSERVATION OF PAIN, SOB, OR DISCOMFORT. ENCOURAGED PT TO NOTIFY STAFF FOR ALL NEEDS. CALL LIGHT WITHIN REACH, BED ALARM ON, BED IN LOWEST POSITION, WILL CONTINUE TO MONITOR.
[2020-02-13 04:00] VITALS: BP 139/65
[2020-02-13 09:00] VITALS: BP 135/59
--- NOTE | 2020-02-13 10:25 | NUR ---
CALLED FROM PT'S PHONE AT BEDSIDE AND SPOKE WITH DPOA ABOUT PT REFUSING TO HAVE DOBHOFF TUBE PLACED WITH AGENCY DEVELOPMENT MANAGER ERNESTINE IN ROOM. ASKED DPOA TO TALK TO PT ABOUT NEED FOR DOHOFF PLACEMENT. AFTER PT TALKING WITH DPOA PT STILL REFUSING ANY INTERVENTION AT THIS TIME. AGENCY DEVELOPMENT MANAGER SPOKE WITH DPOA ON PHONE AT [facility] AND UPDATE WAS GIVEN TO DR. RUDOLPH WHO WILL SPPEK WITH DPOA. WILL CONTNINUE TO ASSESS AND ENCOURAGE PO INTAKE.
--- NOTE | 2020-02-13 14:48 | NUR ---
HARLEEN reviewed chart and spoke with nursing and attending physician. Pt is in Enhanced Isolation due to COVID-19. Pt was febrile earlier today. Pt's family deciding about peg tube placement and requesting a dobhoff to be placed temporarily. Pt was refusing dobhoff placement earlier today. Attending physician to discuss further with family. DPOA ppwk is on pt's chart for review, which documents that pt's niece, Parris, is pt's DPOA. HARLEEN spoke with both Parris and pt's dtr, Jeni, via phone conference call this afternoon to discuss plan of care. Pt's dtr states that they would like dobhoff to be placed and see if pt's condition improves, before deciding on surgical placement of peg tube. HARLEEN explained SNFs are not able to accept pts with a dobhoff in place. Pt's family are aware and ask for attempt to place dobhoff again. Pt's family had question regarding DPOA ppwk that is on pt's chart. Pt's niece states that pt's dtr, Jeni, should also be listed on the document. HARLEEN explained that document received from [facility], only documents Parris. HARLEEN emailed copy of DPOA ppwk to [facility] for review. Pt's family requests to visit with pt via Face Time, if possible. HARLEEN contacted [facility] patient advocate to assist with providing tablet for Face Time. HARLEEN updated [facility] post-acute liaison. HARLEEN is following to assist as needed with discharge planning.
[2020-02-13 16:18] VITALS: BP 153/62
--- NOTE | 2020-02-13 18:22 | NUR ---
PT STILL REFUSING TO EAT AND DID NOT WNAT DOBHOOF TUBE PLACED. PT REMIANS PLEASANTLY CONFUSED BUT HASMOMENT OF ORIENTATION. REMAINS ON PPN. WILL CONTINUE TO ASSESS.
[2020-02-13 19:18] VITALS: BP 147/70
[2020-02-14 05:48] VITALS: BP 140/63
[2020-02-14 07:42] VITALS: BP 130/55
--- NOTE | 2020-02-14 12:54 | NUR ---
ASSUMED PATIENT CARE THIS AM AT APPROXIMATELY 0700. MEDS AND ASSESSMENTS CHARTED. NO S/S OF RESPIRATORY DISTRESS NOTED THIS SHIFT. PATIENT STILL NOT HAVING ANY APPETITE THIS SHIFT. PATIENT FAMILY IS STILL DISCUSSING PLAN WITH PHYSICIAN. THEY WANT TO HAVE A VIDEO CONFERENCE WITH PATIENT AND NURSE AT BEDSIDE TO SEE HOW THEY TOLERATE FOOD AT MEAL TIME.
[2020-02-14 13:59] LABS: HEMATOCRIT 33.1 % (37.0-47.0); HEMOGLOBIN 11.4 gm/dL (12.0-15.0); MCH 27.8 pg (26.0-34.0); MCHC 34.4 g/dL (28.0-37.0); MCV 80.9 fL (80.0-100.0); RBC 4.09 mil/uL (4.20-5.00); RDW 16.1 % (10.5-14.5); WBC 5.5 thou/uL (4.0-11.0)
[2020-02-14 14:06] LABS: CALCIUM 8.2 mg/dL (8.5-10.1); MAGNESIUM 1.5 mg/dL (1.8-2.4); POTASSIUM 4.4 mmol/L (3.5-5.1)
--- NOTE | 2020-02-14 16:49 | NUR ---
SW reviewed chart and spoke with nursing and attending physician. Pt is in Enhanced Isolation due to COVID-19. Pt's family to Face Time pt to see if they can observe pt's oral intake. Awaiting decision from family regarding peg tube placement. SW provided update to Cara at [facility]. Plan is for pt to return to [facility] when medically stable. HARLEEN is following to assist as needed with discharge planning.
[2020-02-14 16:51] VITALS: BP 142/59
[2020-02-14 21:00] VITALS: BP 137/61
[2020-02-15 02:53] VITALS: BP 134/69
[2020-02-15 06:09] LABS: HEMATOCRIT 32.4 % (37.0-47.0); HEMOGLOBIN 10.6 gm/dL (12.0-15.0); MCH 26.6 pg (26.0-34.0); MCHC 32.6 g/dL (28.0-37.0); MCV 81.6 fL (80.0-100.0); RBC 3.98 mil/uL (4.20-5.00); RDW 16.1 % (10.5-14.5); WBC 9.3 thou/uL (4.0-11.0)
[2020-02-15 06:49] LABS: CALCIUM 8.1 mg/dL (8.5-10.1); MAGNESIUM 1.6 mg/dL (1.8-2.4); POTASSIUM 4.2 mmol/L (3.5-5.1)
--- NOTE | 2020-02-15 07:32 | NUR ---
ASSUME CARE 1900. PT/VITALS STABLE. PT IS CONFUSED BUT VERY PLEASANT AND FOLLOWS COMMANDS TO A GREAT EXTEND. DENIES ANY PAIN. VERY POOR APPETITE. NEEDS ENCURAGEMENT TO EAT. ASSESSMENT CHARTED. PROGRESSING MODERATELY WITH POC. NO DISTRESS NOTED. SR ON MONITOR. PLAN IS TO WAIT ON FAMILY FOR DECISION ON DOBHOFF OR PEG TUBE PLACEMENT FOR ADEQUATE NUTRITION. WILL CONTINUE TO MONITOR AND FOLLOW WITH POC
[2020-02-15 08:15] VITALS: BP 153/69
--- NOTE | 2020-02-15 15:42 | NUR ---
PT IS CONFUSED AND SHE IS IMPULSIVE AT TIME, PT STILL IS REFUSED TO EAT HER MEALS AND DINKING , EVEN WE FEED PT, SHE STILL REFUSED TO EAT, PT IS CONTINUING PPN @ 80ML/HR, PT IS ON ISOLATION FOR POSITIVE COVID. PT'S VS ARE STABLE AT THIS TIME.
[2020-02-15 15:59] VITALS: BP 130/62
--- NOTE | 2020-02-15 16:16 | NUR ---
HARLEEN reviewed chart and spoke with nursing and attending physician. Pt remains in Enhanced Isolation due to COVID-19. HARLEEN discussed case with Patient Experience Coordinator, who states that family was able to Face Time pt yesterday. Pt's niece/DPOA has given verbal consent for peg tube placement per surgery. Pt's niece to sign ppwk tomorrow morning at 1000. SW provided update to [place] post-acute liaison. Plan is for pt to return to [facility] when medically stable. HARLEEN is following to assist as needed with discharge planning.
[2020-02-15 21:52] VITALS: BP 143/75
[2020-02-16 06:14] LABS: ABSOLUTE NEUTROPHILS 4.4 thou/uL (1.4-8.2); BASOPHILS 2.1 % (0.0-2.0); EOSINOPHILS 1.2 % (0.0-3.0); HEMATOCRIT 31.8 % (37.0-47.0); HEMOGLOBIN 10.9 gm/dL (12.0-15.0); LYMPHOCYTES 13.1 % (24.0-44.0); MCH 27.8 pg (26.0-34.0); MCHC 34.1 g/dL (28.0-37.0); MCV 81.5 fL (80.0-100.0); MONOCYTES 9.8 % (1.0-8.0); PLATELET COUNT 397 thou/uL (150-400); POLYS 73.8 % (36.0-66.0); RBC 3.91 mil/uL (4.20-5.00); RDW 16.3 % (10.5-14.5)
[2020-02-16 06:24] LABS: INR 1.2; PROTIME 12.3 Seconds (9.3-11.4)
[2020-02-16 06:27] VITALS: BP 129/55
[2020-02-16 06:39] LABS: ALBUMIN 2.6 g/dL (3.4-5.0); CALCIUM 8.3 mg/dL (8.5-10.1); CREATININE 0.9 mg/dL (0.6-1.0); MAGNESIUM 2.2 mg/dL (1.8-2.4); PHOSPHORUS 4.2 mg/dL (2.5-4.9); TOTAL BILIRUBIN 0.3 mg/dL (0.2-1.0); TOTAL PROTEIN 6.3 g/dL (6.4-8.2)
[2020-02-16 06:43] LABS: POTASSIUM 5.2 mmol/L (3.5-5.1)
--- NOTE | 2020-02-16 07:22 | NUR ---
Pt. slept fair during the night. Tolerating room air well. Afebrile. She has been pleasantly confused but cooperative. Bed alarm on for safety. Making some progress towards care plan goals.
[2020-02-16 08:07] VITALS: BP 146/71
--- NOTE | 2020-02-16 14:55 | NUR ---
HARLEEN reviewed chart and spoke with nursing and attending physician. Pt remains in Enhanced Isolation due to COVID-19. Pt's family have agreed to have peg tube placed. Eliquis being held. Plan for peg tube to be placed by surgery on Wednesday. Received call from pt's niece/DPOA asking if she need to come to the hospital to physically sign consents for surgery. Or if she could give verbal consent over the phone, that would be preferred. SW contacted surgeon. Discussed with nursing as well. Pt's niece is agreeable with coming to [facility] to sign ppwk if needed. Staff to reach out to [facility] over the weekend if needed. Parris requesting another Face Time/virtual visit with pt prior to surgery. HARLEEN sent message to Patient Experience Coordinator to arrange with nursing staff and family. HARLEEN provided update to [place] post-acute liaison. No weekend discharge planned. HARLEEN is following to assist as needed with discharge planning.
[2020-02-16 15:15] VITALS: BP 148/72
--- NOTE | 2020-02-16 18:14 | NUR ---
PT STILL IS CONFUSED AND SHE IS IMPULSIVE AT TIME, PT IS HIGH FALL RISK , PT STILL REFUSED EATING AND DRINKING EVEN WE FEED HER, PT IS CONTINUING PPN @ 80ML/HR, PT WILL HAVE PEG TUBE PLACEMENT AT NEXT WEDNESDAY,
[2020-02-16 19:09] VITALS: BP 136/71
[2020-02-17 03:07] VITALS: BP 137/66
--- NOTE | 2020-02-17 03:12 | NUR ---
Pt. pulled out IV at shift change. New Iv placed on left FA. Pt. very forgetful and oriented to person only. She slept well about 0300 then awake watching TV. Afebrile. Bed alarm on and SCD's in place.
[2020-02-17 06:01] LABS: ABSOLUTE NEUTROPHILS 4.6 thou/uL (1.4-8.2); BASOPHILS 1.4 % (0.0-2.0); EOSINOPHILS 1.1 % (0.0-3.0); HEMATOCRIT 33.3 % (37.0-47.0); HEMOGLOBIN 11.2 gm/dL (12.0-15.0); LYMPHOCYTES 13.3 % (24.0-44.0); MCH 27.6 pg (26.0-34.0); MCHC 33.6 g/dL (28.0-37.0); MCV 82.4 fL (80.0-100.0); MONOCYTES 9.1 % (1.0-8.0); PLATELET COUNT 363 thou/uL (150-400); POLYS 75.1 % (36.0-66.0); RBC 4.04 mil/uL (4.20-5.00); RDW 16.4 % (10.5-14.5); WBC 6.1 thou/uL (4.0-11.0)
[2020-02-17 06:29] LABS: ALBUMIN 2.7 g/dL (3.4-5.0); MAGNESIUM 1.8 mg/dL (1.8-2.4); PHOSPHORUS 4.4 mg/dL (2.5-4.9); POTASSIUM 4.5 mmol/L (3.5-5.1); TOTAL BILIRUBIN 0.3 mg/dL (0.2-1.0); TOTAL PROTEIN 6.5 g/dL (6.4-8.2)
[2020-02-17 10:04] VITALS: BP 135/80
[2020-02-17 17:02] VITALS: BP 147/58
--- NOTE | 2020-02-17 19:31 | NUR ---
ASSUMED PATIENT CARE AT 0700. AERLT TO SELF. CONFUSED, REFUSED TO EAT. NOT TOWARDS POC GOALS.
[2020-02-17 20:38] VITALS: BP 132/65
--- NOTE | 2020-02-18 03:37 | NUR ---
Pt. slept better last night. Pleasantly confused and only oriented to person. Cont. on COVID isolation , afebrile. PPN infusing.
[2020-02-18 03:40] VITALS: BP 141/69
[2020-02-18 08:20] VITALS: BP 132/65
[2020-02-18 17:25] VITALS: BP 106/55
--- NOTE | 2020-02-18 18:37 | NUR ---
PT KNOWS HER NAME AND DAY, BUT PT IS CONFUSED AND IMPULSIVE AT TIME, PT PUT OUT HER PIV, PT STILL REFUSED EATING AND DRINKING, PT IS CONTINUING PPN AT 80ML/HR, PT IS GOING TO HAVE PEG TUBE PLACEMENT TOMORROW,
[2020-02-18 19:50] VITALS: BP 112/55
--- NOTE | 2020-02-19 06:40 | NUR ---
ASSUMED PT CARE AROUND 0000. AXOX2. VSS. NO S/S ACUTE DISTRESS NOTED OR REPORTED AT THIS TIME. WILL CONT TO MONITOR FOR ANY CHANGES IN CONDITION.
[2020-02-19 08:22] VITALS: BP 124/61
--- NOTE | 2020-02-19 10:27 | NUR ---
If PEG is placed then recommend start glucerna 1.2 at 30ml/hr with final goal of 65ml/hr. Discontinue PPN once tube feed rate increased and tolerance to TF demonstrated.
[2020-02-19 11:06] VITALS: BP 144/68
--- NOTE | 2020-02-19 15:11 | NUR ---
SW reviewed chart and spoke with nursing and attending physician. Pt is in Enhanced Isolation due to COVID-19. Pt to have peg tube placed per surgery. Psych consulted. SW provided update to [place] post-acute liaison. Will fax updates after peg tube is placed with RD recommendations. Plan is for pt to return to [facility] when medically stable. HARLEEN is following to assist as needed with discharge planning.
[2020-02-19 15:26] VITALS: BP 148/74
--- NOTE | 2020-02-19 19:40 | NUR ---
PT KNOWS HER NAME AND DAY, BUT PT IS CONFUSED AT TIME, PT STILL HAS REFUSED EATING AND DRINKING,PT IS CONTINUING PPN @80ML/HR, PT IS ON ISOLATION FOR POSITIVE COVID. PT DOES NOT HAVE SOB AND FEVER .
[2020-02-19 19:48] VITALS: BP 118/50
[2020-02-20 05:16] VITALS: BP 141/62
--- NOTE | 2020-02-20 08:30 | NUR ---
ABLE TO TAKE HER PILLS BUT VERY POOR APPETITE. ON PPN AT 80 ML/HR.PLEASANTLY CONFUSED AND DID NOT ATTEMPT TO GET OUT OF BED THIS SHIFT.POC CONTINUED.
[2020-02-20 08:31] VITALS: BP 130/69
[2020-02-20 11:50] VITALS: BP 131/74
--- NOTE | 2020-02-20 14:37 | NUR ---
Received awake on bed. Due medications given as prescribed, able to swallow meds w/o difficulty. On room air. Pt confused, alert to self only; re-oriented from time to time; may be impulsive at times. On telemetry; SR-ST, strips attached to chart; no complaints of chest pain, crushing sensation and heaviness. On carb controlled diet- assisted and encouraged in eating and drinking, pt with poor appetite, offered snacks from time to time. On blood sugar monitoring- taken and recorded accordingly; with sliding scale insulin ordered- given as prescribed. With de la fuente in place- output measured and recorded accordingly; de la fuente care done. Maintained on isolation. With PPN, infusing well at 80cc/hr at R FA. Assisted in ADLs. Vital signs stable. Paged surgery team re: plan for patient re: PEG insertion and schedule. Dr Ramesh seen and examined patient, to do lap gastrectomy tomorrow; pt to be on NPO post midnight; hold apixaban- orders made- to inform overnight stocker; To call pt's relative to obtain consent. To continue monitoring patient.
--- NOTE | 2020-02-20 15:33 | NUR ---
SW received call from pt's niece/DPOA regarding peg tube placement. SW reviewed chart and spoke with nursing. Pt's peg tube was to be placed yesterday. Pt's Eliquis had been on hold. Pt received dose of Eliquis last evening. HARLEEN contacted surgeon who states pt will have procedure tomorrow. SW left voice message for pt's niece/DPOA to provide update. Nursing will call for verbal consent for procedure. SW provided update to [place] post-acute liaison. Pt remains in Enhanced Isolation due to COVID-19. HARLEEN is following to assist as needed with discharge planning.
[2020-02-20 16:58] VITALS: BP 104/50
[2020-02-20 19:46] VITALS: BP 108/62
--- NOTE | 2020-02-21 01:12 | NUR ---
VSS-AFEBRILE. PLEASANTLY CONFUSED OVERNIGHT, ORIENTED TO PERSON ONLY. TURNS AND MOVES SELF AROUND IN BED WITHOUT ASSISTANCE. ABLE TO DRINK AND EAT WITHOUT ANY DIFFICULTY. NO REPORTED PAIN. FALL PRECAUTIONS IN PLACE.
[2020-02-21 04:32] VITALS: BP 118/70
[2020-02-21 11:37] VITALS: BP 144/57
--- NOTE | 2020-02-21 12:00 | NUR ---
PT'S SURGERY FOR TODAY WAS CANCELLED, RN WAS NOTIFIED BY DAIRY TECHNOLOGIST THAT PT IS NOT ON SCHEDULE FOR TODAY; R/T SCHEDULE UNAVAILABILITY. PT IS RESCHEDULED FOR SURGERY ON WEDNESDAY AT NOON PER DAIRY TECHNOLOGIST. NO ACUTE CHANGES FROM THE PT AT THIS TIME. STILL RECEIVING PPN AT 80ML/HR, PLEASANTLY CONFUSED, REDIRECTABLE. WILL RESUME PO NUTRITION (CARB CONTROL DIET 1800) AND SET NPO TO RESUME AGAIN ON WEDNESDAY AT MIDNIGHT. SURGICAL RESCHEDULE UPDATED TO BOX PERSON, SYSTEMS TEST ANALYST, HEAT TREATING FURNACE TENDER, PT'S DPOA.
--- NOTE | 2020-02-21 14:57 | NUR ---
HARLEEN reviewed chart and spoke with nursing and attending physician. Pt remains in Enhanced Isolation due to COVID-19. Pt is afebrile and not requiring O2. Pt is scheduled to have peg tube placed at 1700 today per surgery. HARLEEN spoke with pt's niece/DPOA, Parris, via phone today. Lengthy conversation regarding delay in peg tube placement, current plan of care and discharge plan. Pt's family would like to do another Face Time/Virtual visit with pt. Pt's niece confirms plan to return to [facility] when medically stable. SW provided update to [place] post-acute liaison. Clinical info to be faxed after peg tube placement. HARLEEN is following to assist as needed with discharge planning.
[2020-02-21 16:27] VITALS: BP 153/56
[2020-02-22 05:00] VITALS: BP 105/62
--- NOTE | 2020-02-22 05:55 | NUR ---
Pt. had placement of gastric tube laparoscopically last night. DPOA niece updated on pt.'s status once she's back on the floor. Took HS pills po without problem. Slept fair during the night. Once awake , she hollers for help. She's easily redirected and pleasantly confused. Reoriented frequently. PPN infusing. Afebrile. Bed alarm on and SCD's in place.
[2020-02-22 08:00] VITALS: BP 120/61
--- NOTE | 2020-02-22 09:50 | NUR ---
RD PEG BOLUS FEEDING RECOMMENDATIONS: 1) Recommend Glucerna 1.2 enteral formula. 2) Recommend 6 cans daily distributed across 5 bolus feedings/day. Pt needs 360 ml (1.5 cans) x 2 feeds/day, 240 ml (1 can) x 3 feeds/day 3) Example schedule: 360 ml at 6am, 240 ml at 10am, 360 ml at 1pm, 240 ml at 5pm, 240 ml at 8pm 4) Once PPN discontinued, recommend minimum of 100 ml water flushes with each bolus feeding to meet minimum fluid needs.
--- NOTE | 2020-02-22 11:41 | NUR ---
UTILIZED PT'S NEW PARAENTERAL FEEDING TUBE THIS MORNING AT 1030, GLUCERNA 1.2 120cc WAS PROVIDED PER CATTLE TRADER RECOMMENDATION. PPN STILL RUNNING, NO UPDATE ON THE ORDER AT THIS POINT FOR DC, ABDOMINAL BINDER PLACED ON THE PT, PT HAS NOT TOGGLED WITH THE FEEDING TUBE AT THIS POINT. CALLED PT'S DPOA AND PROVIDED UPDATE REGARDING CURRENT STATUS AND UPDATED PLAN OF CARE. PT'S DPOA WAS ALSO CONNECTED TO THE PT'S ROOM VIA RN AND BOTH WERE ABLE TO COMMUNICATE. PT APPEARED TO BE HAPPY AFTER THE PHONE CALL. PT DENIES NAUSEA, NO VOMITTING AT THIS POINT. LAPARASCOPIC PROCEDURE SITES ARE CLEAN, ATTACHED BY DERMABOND. NO OTHER CONCERNS AT THIS TIME, WILL CONTINUE TO MONITOR AND UPDATE NECESSARY
--- NOTE | 2020-02-22 12:22 | NUR ---
PT NO LONGER NEEDS ACUTE CARE OT SERVICES. PT IS CURRENTLY FUNCTIONING AT BASELINE, PHYSICAL THERAPY HAS DISCHARGED HER, SHE LIVES AT A LTC FACILITY WHERE SHE HAS STAFF TO ASSIST HER WITH ADLS AND FUNCTIONAL TRANSFERS NEEDED. PLEASE LET OT DEPT KNOW IF PT CONDITION CHANGES AND ACUTE OT SERVICES ARE WARRANTED.
--- NOTE | 2020-02-22 15:27 | NUR ---
HARLEEN reviewed chart and spoke with nursing and attending physician. Pt is in Enhanced Isolation due to COVID-19. Pt had peg tube placed last evening. Tube feeding to be started today. HARLEEN faxed clinical updates to [facility] for review. HARLEEN updated [place] post-acute liaison. Pt may be ready for discharge soon, once tube feeding is being tolerated. HARLEEN spoke with pt's niece/DPOA, Parris, via phone to provide update. Pt's niece is aware and agreeable with plan. Pt's dtr, Jeni, would like to Face Time with pt if possible later today. SW notified pt's nurse. SW is following to assist as needed with discharge planning.
[2020-02-22 16:11] VITALS: BP 121/61
[2020-02-22 19:23] VITALS: BP 122/63
[2020-02-23 05:12] VITALS: BP 100/63
--- NOTE | 2020-02-23 05:49 | NUR ---
Pt. slept fair during the night. Tolerated bolus feeding . Abdominal binder in place for protection. O2 sat 99% in RA. Wu and SCD's in place.
[2020-02-23 08:30] VITALS: BP 136/76
--- NOTE | 2020-02-23 13:20 | NUR ---
DISCHARGE NOTE: HARLEEN reviewed chart and spoke with nursing. Pt is in Enhanced Isolation due to COVID-19. Pt had peg tube placed on 02/20 and is medically stable for discharge back to [facility] today. HARLEEN faxed finalized discharge orders/summary to [facility]. HARLEEN notified [place] post-acute liaison who arranged stretcher van transportation for [id number] via [employer]. HARLEEN spoke with pt's perez/Parris ROMERO via phone to provide update and discuss discharge plan. Parris had spoke with attending physician and is agreeable with discharge plan. Parris asked about GI's plan for outpatient colonoscopy. HARLEEN reviewed notes from GI and discussed with GI CORPORATE SECRETARY. Pt will need to be negative in order to have outpt procedure. HARLEEN spoke with Marcie, director business systems of [facility], who states that if they have a physician order, they will retest their residents. Otherwise they will not retest their residents if they are asymptomatic. HARLEEN notified attending physician, who added an addendum to his d/c summary. HARLEEN faxed to [place] post-acute liaison. HARLEEN discussed with pt's perez and Heather of [place] Jennifer GANNON, via conference call. Chart copy requested. Nursing provided with number to call report. No additional SW needs identified at this time, but is available to assist should needs arise.
--- NOTE | 2020-02-23 13:47 | NUR ---
PT ALERT AND ORIENTED TIMES ONE. PLEASANTLY CONFUSED. VSS, SR ON TELE, DUONG TO DD. PT DENEIS PAIN/SOA. PT HAS VERY POOR APPEITE. SUPPLEMENTAL TUBE FEEDING PER PEG. TOLERATING WELL. PT UP TO BSC WITH ASSIST OF ONE. POSSIBLE PLAN TO DISCHARGE BACK TO [facility] TODAY.
== END 2020-02-23 13:44 | DRG 871 ==
LOC: ER 18:46 → 3W 20:54 → EROBS 20:54 → 3W 23:25
PROVIDERS: Emergency Medicine; Internal Medicine; Nurse Practitioner; Nurse Practitioner Family; ADMIT Internal Medicine; ATTEND Internal Medicine
PROC: 0DH64UZ Insertion of Feeding Device into Stomach, Percutaneous Endoscopic Approach (ICD-10-PCS; principal; 2020-02-21)
DX: A41.89 Other specified sepsis (principal); U07.1 COVID-19; J12.9 Viral pneumonia, unspecified; E43 Unspecified severe protein-calorie malnutrition; N17.9 Acute kidney failure, unspecified; K56.609 Unspecified intestinal obstruction, unspecified as to partial versus complete obstruction; E87.0 Hyperosmolality and hypernatremia; K56.7 Ileus, unspecified; G93.40 Encephalopathy, unspecified; E11.9 Type 2 diabetes mellitus without complications; E78.5 Hyperlipidemia, unspecified; I10 Essential (primary) hypertension; E03.9 Hypothyroidism, unspecified; F03.90 Unspecified dementia, unspecified severity, without behavioral disturbance, psychotic disturbance, mood disturbance, and anxiety; E87.6 Hypokalemia; I95.1 Orthostatic hypotension; F12.90 Cannabis use, unspecified, uncomplicated; E86.0 Dehydration; K52.9 Noninfective gastroenteritis and colitis, unspecified; E83.42 Hypomagnesemia; E83.39 Other disorders of phosphorus metabolism; R62.7 Adult failure to thrive; R41.0 Disorientation, unspecified; F20.9 Schizophrenia, unspecified; Z86.711 Personal history of pulmonary embolism; Z68.29 Body mass index [BMI] 29.0-29.9, adult
CPT/HCPCS: 10879; 50101; 50249; 50411; 50555; 52265; 52266; 53307; 53310; 54118; 56462; 56525; 56526; 62110; 62900

== ENCOUNTER 2020-04-04 14:09 | Emergency (ER) | payer OTHER ==
[~2020-04-04] VITALS: Ht 152.4 cm; Wt 74.8 kg
[2020-04-04 16:16] VITALS: BP 149/58
== END 2020-04-04 16:47 ==
LOC: ER 14:09
DX: Z43.1 Encounter for attention to gastrostomy (principal); I10 Essential (primary) hypertension; E78.5 Hyperlipidemia, unspecified; E11.9 Type 2 diabetes mellitus without complications; E03.9 Hypothyroidism, unspecified; Z79.899 Other long term (current) drug therapy

== ENCOUNTER 2020-05-30 23:38 | Emergency (ER) | payer OTHER ==
[~2020-05-30] VITALS: Ht 162.6 cm; Wt 72.6 kg
--- NOTE | ~2020-05-30 | EKG ---
[facility] [place] [address] ELECTROCARDIOGRAM REPORT Name: GUS ELIZABETH Rajinder Room #: DEP [facility]#: [id number] Admission: 05/30/20 Attend Phys: Discharge: 05/31/20 Date of : 36 Report #: [id number] THIS REPORT FOR: cc: Matthew Villagran MD, Shyam MD Epiphany, Epiphany MD ~ THIS REPORT FOR: //name// [facility] ED Test Date: 2020-05-31 Test Time: 00:45:36 Pat Name: GUS ELIZABETH Department: Room: Gender: F Rn Transition: mpark : 1940 Requested By: Epifanio Rutledge Order Number: [id number] MD: Measurements Intervals [place] Rate: 62 P: 59 [place]: 162 QRS: -18 QRSD: 92 T: 38 QT: 460 QTc: 468 Interpretive Statements Sinus rhythm Borderline left axis deviation Minimal ST elevation, anterior leads No previous ECG available for comparison [email or web address] By: 0045 0045 Epiphany EpiphanyMD /EPI
[2020-05-31 00:53] LABS: ABSOLUTE NEUTROPHILS 4.5 thou/uL (1.4-8.2); EOSINOPHILS 1.5 % (0.0-3.0); HEMOGLOBIN 13.2 gm/dL (12.0-15.0); LYMPHOCYTES 16.6 % (24.0-44.0); MCH 28.2 pg (26.0-34.0); MCV 85.7 fL (80.0-100.0); MONOCYTES 11.7 % (1.0-8.0); PLATELET COUNT 313 thou/uL (150-400); POLYS 69.2 % (36.0-66.0); RBC 4.67 mil/uL (4.20-5.00); RDW 14.7 % (10.5-14.5); WBC 6.5 thou/uL (4.0-11.0)
[2020-05-31 00:56] LABS: URINE BILIRUBIN NEGATIVE (Negative); URINE BLOOD TRACE (Negative); URINE CLARITY CLEAR; URINE COLOR YELLOW; URINE GLUCOSE-RANDOM* NEGATIVE (Negative); URINE KETONES NEGATIVE (Negative); URINE LEUKOCYTES-REFLEX TRACE (Negative); URINE NITRITE-REFLEX NEGATIVE (Negative); URINE PROTEIN (DIPSTICK) NEGATIVE (Negative); URINE UROBILINOGEN 0.2 E.U./dl (0.2-1.0)
[2020-05-31 01:03] LABS: ANION GAP 10 mmol/L (7-16); BUN 17 mg/dL (7-18); CALCIUM 8.8 mg/dL (8.5-10.1); CHLORIDE 104 mmol/L (98-107); CO2 27 mmol/L (21-32); CREATININE 1.4 mg/dL (0.6-1.0); GLUCOSE 139 mg/dL (74-106); POTASSIUM 3.7 mmol/L (3.5-5.1); SODIUM 141 mmol/L (136-145)
[2020-05-31 01:04] LABS: INR 1.1; PROTIME 11.1 Seconds (9.3-11.4)
[2020-05-31 01:13] LABS: ALBUMIN 3.9 g/dL (3.4-5.0); MAGNESIUM 1.9 mg/dL (1.8-2.4); SGOT 20 U/L (15-37); SGPT 16 U/L (30-65); TOTAL BILIRUBIN 0.2 mg/dL (0.2-1.0); TOTAL PROTEIN 8.1 g/dL (6.4-8.2); TROPONIN-I <0.06 ng/mL (<0.06)
[2020-05-31 01:18] VITALS: BP 163/106
--- NOTE | 2020-06-03 07:27 | EKG ---
[facility] [address] [place] [address] ELECTROCARDIOGRAM REPORT Name: GUS ELIZABETH Room #: DEP [facility]#: [id number] Admission: 05/30/20 Attend Phys: Discharge: 05/31/20 Date of : 36 Report #: [id number] THIS REPORT FOR: cc: Matthew Villagran MD, Shyam MD Santiago,Isauro CAMPO [facility] ~ THIS REPORT FOR: //name// [facility] ED Test Date: 2020-05-31 Test Time: 00:45:36 Pat Name: GUS ELIZABETH Department: Room: Gender: F Mcat Instructor: mpark : 1940 Requested By: Epifanio Rutledge Order Number: [id number] MD: Isauro English Measurements Intervals [place] Rate: 62 P: 59 WI: 162 QRS: -18 QRSD: 92 T: 38 QT: 460 QTc: 468 Interpretive Statements Sinus rhythm Borderline left axis deviation J Point elevation, anterior leads Compared to ECG 01/31/2020 19:08:50 Sinus tachycardia no longer present Atrial premature complex(es) no longer present ST (T wave) deviation still present Electronically Signed On 06-03-2020 7:27:23 GRANT MANAGER by Isauro English [email or web address] <ELECTRONICALLY SIGNED> By: Isauro English MD, FACC 06/03/20 07 Isauro English MD, [facility] /EPI
== END 2020-05-31 02:12 | disposition short-term general hospital (02) ==
LOC: ER 23:38
PROVIDERS: Emergency Medicine
DX: S06.5X9A Traumatic subdural hemorrhage with loss of consciousness of unspecified duration, initial encounter (principal); S00.03XA Contusion of scalp, initial encounter; M54.2 Cervicalgia; U07.1 COVID-19; F03.90 Unspecified dementia, unspecified severity, without behavioral disturbance, psychotic disturbance, mood disturbance, and anxiety; I10 Essential (primary) hypertension; E11.9 Type 2 diabetes mellitus without complications; E78.5 Hyperlipidemia, unspecified; E03.9 Hypothyroidism, unspecified; Z79.01 Long term (current) use of anticoagulants; Z86.711 Personal history of pulmonary embolism; Z79.899 Other long term (current) drug therapy; W06.XXXA Fall from bed, initial encounter; Y93.89 Activity, other specified; Y92.128 Other place in nursing home as the place of occurrence of the external cause; Y99.8 Other external cause status

== ENCOUNTER 2021-08-05 03:56 | Emergency (ER) | payer OTHER ==
[~2021-08-05] VITALS: Ht 172.7 cm; Wt 83.9 kg
--- NOTE | ~2021-08-05 | EMS ---
[address] [address] EMS Patient Care Report Name: GUS ELIZABETH Room #: REG TRAVIS Meza#: [id number] Admission: 08/05/21 Attend Phys: Discharge: Date of : 36 Report #: [id number] THIS REPORT FOR: //name// Report Transmitted: 08/05/2021 03:57 EMS Care Summary [place], [place]/[facility] Incident [id number] @ 08/05/2021 03:19 Incident [address] [place] [address] Patient GUS ELIZABETH Female, 81 Years 1940 Patient Address [address] [place] [address] Patient History Dementia,Diabetes,Hypertension (HTN),Hyperlipidemia,Hypothyroidism, Patient Allergies No known allergies, Chief Complaint R leg pain Disposition Transported No Lights/[place] Reason Sick Person Transported To [facility] Narrative pt found lying in bed. staff reports pt c/o pain in R lower leg for past several hours. pt states she can't bear weight on ext due to pain. staff concerned about a DVT. pt to be seen in ER to R/O DVT. on arrival, pt also c/o pain in L leg. pt stand and pivot to cot, VS, transport w/o change. [address] [address] EMS Patient Care Report Name: GUS ELIZABETH Room #: [facility]#: [id number] Admission: 08/05/21 Attend Phys: Discharge: Date of : 36 Report #: [id number] report to staff on arrival. Initial Vitals @03:42P: 60,R: 18,BP: 183/73,Pain: 10/10,GCS: 15,SpO2: 97,Revised Trauma: 12, Assessments @03:33MENTAL:Confused,SKIN:No Abnormalities,HEENT:Head/Face: No Abnormalities,LUNG SOUNDS:ABDOMEN:PELVIS//GI:EXTREMITIES:Right Leg: Other,Left Leg: Other,PULSE:Radial: 2+ Normal,Pedal: 2+ Normal,NEURO:Other, Impression Extremity Pain Procedures @03:35 Stretcher Response: Unchanged @03:33 ALS Assessment Timeline 03:17,Call Received 03:17,Dispatch Notified 03:19,Dispatched 03:20,En Route 03:31,On Scene 03:33,At Patient 03:33,ALS Assessment, 03:35,Stretcher,Response: Unchanged 03:42,BP: 183/73 M,PULSE: 60,RR: 18 R,SPO2: 97 Ox,ETCO2: ,BG: ,PAIN: 10,GCS: 15, 03:45,Depart Scene 03:59,At Destination 04:13,Call Closed Disclaimer v1.1 Copyright 2021 [employer] This EMS Care Summary contains data elements from the applicable legal record (which may be displayed differently). It is designed to provide pertinent information for the following purposes: continuity of care, clinical quality, and state data reporting. The complete legal record is available to ED staff and administrators of the receiving hospital in [facility]'s Patient Tracker. All data is provided "as is."
[2021-08-05 06:53] VITALS: BP 172/79
== END 2021-08-05 06:55 ==
LOC: ER 03:56
DX: M79.604 Pain in right leg (principal); E11.9 Type 2 diabetes mellitus without complications; E78.5 Hyperlipidemia, unspecified; I10 Essential (primary) hypertension; E03.9 Hypothyroidism, unspecified; F02.80 Dementia in other diseases classified elsewhere, unspecified severity, without behavioral disturbance, psychotic disturbance, mood disturbance, and anxiety; Z86.711 Personal history of pulmonary embolism; Z86.16 Personal history of COVID-19; Z79.899 Other long term (current) drug therapy